=== PATIENT | male | born 1955 | race Caucasian/White ===

== ENCOUNTER 2016-10-05 12:15 | Inpatient (IN) | payer OTHER ==
[2016-10-26] MEDS ORDERED: LIDOCAINE 1% 2 ML INJ ONE (06:06)
[2016-10-26] MEDS ORDERED: BUPIVACAINE/EPI 0.25% 30 ML SDV ONE ×2 (06:57→12:09)
[2016-10-26] MEDS ORDERED: SKIN ADHESIVE (DERMABOND) 1 EACH TP ONE (06:57)
[2016-10-26] MEDS ORDERED: THROMBIN (BOVINE) 20,000 UNIT VIAL TP ONE ×2 (06:57→07:58)
[2016-10-26] MEDS ORDERED: BACITRACIN 50,000 UNITS/10 ML SYR IRR ONE ×2 (06:58→11:52)
[2016-10-26] MEDS ORDERED: morphINE PF 5 MG/10 ML INJ IT ONE (07:00)
[2016-10-26] MEDS ORDERED: CHLORHEXIDINE GLUC HIBICLENS 118 ML BTL TP ONE (07:00)
[2016-10-26] MEDS ORDERED: ceFAZolin 2 GM/DEXTROSE 100 ML IV ONE (07:00)
[2016-10-26] MEDS ORDERED: MIDAZOLAM 2 MG/2 ML VIAL ONE (07:04)
[2016-10-26] MEDS ORDERED: HYDROmorphONE/DILAUDID 2 MG/ML INJ ONE (07:15)
[2016-10-26] MEDS ORDERED: REMIFENTANIL HCL 1 MG VIAL ONE ×3 (07:15→11:28)
[2016-10-26] MEDS ORDERED: fentaNYL 100 MCG/2 ML INJ ONE ×2 (07:15→13:40)
[2016-10-26] MEDS ORDERED: KETAMINE 100 MG/10 ML SYR IVP ONE (07:15)
[2016-10-26] MEDS ORDERED: LR 1,000 ML IV ONE (07:16)
[2016-10-26] MEDS ORDERED: PROPOFOL/EMULSION 500 MG/50 ML BOTTLE IV ONE ×2 (07:16→08:49)
[2016-10-26] MEDS ORDERED: LIDOCAINE 1% 5 ML SDV ID PRN (07:16)
[2016-10-26] MEDS ORDERED: CITRATE DEXTROSE SOLN 500 ML BAG ONE ×2 (07:23)
[2016-10-26 07:39] LABS: CALCIUM 10.1 mg/dL (8.5-10.4); CARBON DIOXIDE 28 mEq/l (22-31); CHLORIDE 95 mEq/L (97-110); CREATININE 1.2 mg/dL (0.7-1.3); GLOMERULAR FILTRATION RATE > 60; GLUCOSE 105 mg/dL (70-100); SODIUM 137 mEq/L (134-144)
[2016-10-26 08:17] LABS: ANION GAP 14 mEq/L (8-16); POTASSIUM 3.8 mEq/L (3.5-5.2)
[2016-10-26] MEDS ORDERED: VASOPRESSIN 20 UNIT/ML VIAL ONE ×5 (08:27→11:31)
[2016-10-26] MEDS ORDERED: PHENYLEPHRINE HCL 100 MCG/ML SYR ONE (08:31)
[2016-10-26] MEDS ORDERED: epHEDrine SULFATE 10 MG/ML SYR ONE ×2 (08:31→10:32)
[2016-10-26] MEDS ORDERED: DEXAMETHASONE 4 MG/ML VIAL ONE ×2 (08:33)
[2016-10-26] MEDS ORDERED: ROCURONIUM 50 MG/5 ML VIAL ONE (08:33)
[2016-10-26] MEDS ORDERED: LIDOCAINE 2% 5 ML SDV ONE (08:33)
[2016-10-26] MEDS ORDERED: PHENYLEPHRINE 10 MG/ML SDV ONE ×3 (08:33→11:14)
[2016-10-26] MEDS ORDERED: ALBUMIN 5% 250 ML BOTTLE IV ONE (09:07)
[2016-10-26] MEDS ORDERED: PROPOFOL 200 MG/20 ML VIAL ONE (10:38)
[2016-10-26] MEDS ORDERED: ceFAZolin 1 GM VIAL ONE (11:35)
[2016-10-26] MEDS ORDERED: ONDANSETRON 4 MG/2 ML VIAL ONE (12:41)
[2016-10-26] MEDS ORDERED: PSEUDOEPHEDRINE HCL 30 MG TAB PO PRN (13:04)
[2016-10-26] MEDS ORDERED: SIMETHICONE 125 MG PO PRN (13:04)
[2016-10-26] MEDS ORDERED: ALPRAZolam 0.25 MG TAB PO PRN (13:04)
[2016-10-26] MEDS ORDERED: diphenhydrAMINE 25 MG CAP PO PRN (13:08)
[2016-10-26] MEDS ORDERED: MAGNESIUM HYDROXIDE 30 ML UDCUP PO PRN (13:08)
[2016-10-26] MEDS ORDERED: LACTULOSE 20 GM/30 ML UDCUP PO PRN (13:08)
[2016-10-26] MEDS ORDERED: BISACODYL 10 MG SUPP PR PRN (13:08)
[2016-10-26] MEDS ORDERED: ONDANSETRON DISINTEGRATING 4 MG TAB PO PRN (13:08)
[2016-10-26] MEDS ORDERED: POLYETHYLENE GLYCOL 3350 17 GM PKT PO PRN (13:08)
[2016-10-26] MEDS ORDERED: ONDANSETRON 4 MG/2 ML VIAL IVP PRN (13:08)
[2016-10-26] MEDS ORDERED: TESTOSTERONE IM 100 MG/ML SYRINGE IM SCH (13:30)
[2016-10-26] MEDS ORDERED: DEXMEDETOMIDINE HCL 400 MCG in NS 100 ML IV SCH (13:30)
[2016-10-26] MEDS ORDERED: fentaNYL 75 MCG PATCH TD SCH (13:30)
[2016-10-26] MEDS ORDERED: HYDROmorphONE/DILAUDID 1 MG/ML SYR ONE (13:40)
[2016-10-26] MEDS ORDERED: DIAZEPAM 10 MG/2 ML SYR ONE (14:02)
[2016-10-26] MEDS ORDERED: D50W 25 GM/50 ML SYR IVP PRN (14:10)
--- NOTE | 2016-10-26 14:10 | POSTOPPROG ---
Post Op Note Date of Operation: 10/26/16 Surgeon: Shashank Dominguez Home [employer] Teacher: Slava Rojas Anesthesiologist: Oscar Anesthesia: GET(General Endotracheal) Pre-op Diagnosis: Lumbar ddd Post-op Diagnosis: same Indication: pain, radiculopathy, stenosis Procedure: L3-S1 hardware removal with L23 TLIF, T8-S1 posterior fusion Inf/Abcess present in the surg proc area at time of surgery?: No Depth: Organ Space EBL: 100-500 Complications: none Drains: Jai Andrew ([email or web address]) Specimen(s): fluid sent for gram stain/culture PA Addendum - Addendum .: S: Pt resting in bed. Stated "I can't breathe" O: Awake but sleepy NAD VSS MAEx4 Motor 5/5 BUE/BLE Incision cdi JPx2 Anne in place A: 61 yo M s/p L3-S1 hardware removal with L23 TLIF, T8-S1 posterior fusion P: PT/OT To ICU for precedex/pain control sliding scale insulin ordered if needed Pain management - increased from home meds Post op xrays pending Gerson brace when OOB TEDs, SCDs, lovenox 24 hours post op Call NS with any issues
--- NOTE | 2016-10-26 14:19 | GOP ---
[f rep st] OPERATIVE REPORT DATE OF OPERATION: 10/26/2016 SURGEON: Shashank Dominguez MD ANESTHESIA: General. PREOPERATIVE DIAGNOSIS: 1. Adjacent level breakdown with severe spinal stenosis, L2-L3. 2. History of prior lumbar fusion, L3 to S1. 3. Thoracic spondylosis, T8 through L2. 4. Treatment refractory to nonoperative intervention. POSTOPERATIVE DIAGNOSIS: 1. Adjacent level breakdown with severe spinal stenosis, L2-L3. 2. History of prior lumbar fusion, L3 to S1. 3. Thoracic spondylosis, T8 through L2. 4. Treatment refractory to nonoperative intervention. PROCEDURE PERFORMED: 1. Posterior arthrodesis with approach to T8, T9, T10, T11, T12, L1, L2, L3, L4 , L5 and S1. 2. Exploration of prior lumbar hardware, L3 through S1, with sequential removal of segmental hardware including bilateral cap screws and rods from the L3 through S1 levels bilaterally from the [employer] System. 3. Placement of new bilateral pedicle screws into the T8, T9, T10, T11, T12, L1 and L2 levels from [employer] System. 4. Posterolateral fusion bilaterally between T8 and L3, and left-sided redo L5- S1 with morselized autograft and allograft. 5. Decompressive laminectomy with right-sided transforaminal lumbar interbody fusion at L2-L3, with a 10 x 27 8 mm PEEK cage filled with morselized autograft and allograft. 6. Use of intraoperative 3D Stealth navigation. 7. Use of intraoperative fluoroscopy, with less than 1 hour of physician time. 8. Use of neuromonitoring. 9. Use of the operating microscope. FINDINGS: per imaging SUPERVISOR TOY ASSEMBLY: CHARLEE Leahy SPECIMENS: Cultures were taken from the intraoperative wound after the exposure given his prior history of infection. ESTIMATED BLOOD LOSS: 500 mL, of which 250 was given back via Cell Saver. INDICATIONS: The patient is well known to me from prior multiple lumbar surgeries. The patient developed adjacent level breakdown at L2-L3 above his prior fusion L3 through S1. After failing nonoperative interventions and after discussion of the risks, benefits, and alternatives, we decided proceed forth with surgery as described above. He had been cleared by his ID doctor to proceed with surgery. DESCRIPTION OF PROCEDURE: The patient was brought to the operating theater and underwent general endotracheal anesthesia without complications. He had Venodynes and MARTHA hose, and the appropriate lines placed by Anesthesia. He was then flipped prone onto the Jai table. All bony processes were inspected and padded. The thoracic and lumbar areas and prior incision were identified and prepped and draped in the usual sterile surgical fashion. A time-out was completed per protocol. The patient received antibiotics within 1 hour of incision. The incision was infiltrated Marcaine with epinephrine and taken down with the scalpel blade. Using the plasma blade, the incision was taken down the midline to the lumbodorsal fascia. A subperiosteal dissection was carried out from the T8 through S1 levels. The dissection was extremely tedious secondary to the patient's prior infection and scar tissue. This added an additional hour and a half to the surgery. At this point, we completed our subperiosteal dissection and was able to identify the prior hardware from L3 through S1, which we then explored. He appeared to be solidly fused throughout. We removed the sequential cap screws and rods bilaterally from the L3 through S1 levels and passed them off the field. We then dissected on the left side between L5-S1 and decorticated the bone. We attached the 3D Stealth navigation clamp to the spinous process of L2 and completed a 3D Stealth navigation spin. Using 3D Stealth navigation, we placed the chief pilot holes for the bilateral pedicle screws into T8, T9, T10, T11, T12, L1 and L2. This required 2 separate spins with the O-arm. We then tapped and placed 5 x 50 mm screws bilaterally into T8, T9 and T11, 5 x 55 mm screws bilaterally into T10 and right-sided L1, a 6 x 50 mm screw on the right at T11, a 6 x 45 mm screw on the left at T12, and a 6 x 55 mm screw on the left at L1 and bilaterally at L2 from the [employer] System. Another 3D Stealth navigation spin demonstrated excellent placement of the hardware. At this point, the microscope was brought into the field to assist with microscopic dissection and to maintain illumination and magnification. Using a combination of the chemo tip on the drill bit, Kerrison punches and Leksell rongeur, we completed decompressive laminectomy at L2-L3 with a right-sided facetectomy and foraminotomy. We distracted the interspace and completed a right-sided L2-L3 diskectomy. We prepared the cartilaginous endplates and measured interbody space. We placed a 10 x 27 eight mm PEEK cage with morselized autograft and allograft anteriorly toward the midline. We packed additional morcellized autograft into the disk space and interbody fusion. We let down the distraction. We then decorticated the bone bilaterally between T8 and L3 for the posterolateral fusion. We irrigated the wound copiously with bacitracin irrigation. We placed 2 rods into the heads and screws between T8 and S1 bilaterally and secured them down with cap screws which were then tightened to the supervisor pipe finishing's setting. We placed morselized autograft and allograft bilaterally between T8 and L3 and left-sided L5-S1 for the posterolateral fusion. We placed 2 cross connectors as well. Two drains were left in the subfascial space and the wound then closed in multiple layers using Vicryl sutures for the deep layers, and running nylon stitches for the skin. The patient's wounds were dressed sterilely. He was flipped supine onto the transfer cart, where he was awakened, extubated, and taken to the recovery room in stable condition. There were no complications and no noted changes on neuromonitoring throughout the procedure. COMPLICATIONS: None. /[id number]/MODL MTDD
[2016-10-26] MEDS: NS W/ 20 KCl/L 1,000 ML IV SCH (15:00)
[2016-10-26] MEDS ORDERED: SIMETHICONE 80 MG TAB CHEW PO PRN (15:14)
[2016-10-26] MEDS: HYDROmorphONE/DILAUDID 1 MG/ML SYR IVP PRN (15:34)
[2016-10-26] MEDS: DIAZEPAM 10 MG/2 ML SYR IVP PRN (16:02)
[2016-10-26] MEDS: POLYETHYLENE GLYCOL 3350 17 GM PKT PO SCH ×2 (16:02→22:25)
[2016-10-26] MEDS: CYCLOBENZAPRINE 10 MG TAB PO SCH (16:02)
[2016-10-26] MEDS: DEXMEDETOMIDINE HCL 400 MCG in NS 100 ML IV SCH ×2 (16:07→20:01)
[2016-10-26] MEDS: ACETAMINOPHEN 500 MG TAB PO PRN (18:30)
[2016-10-26] MEDS: INSULIN REGULAR HUMAN 100 UNIT/ML SC SCH ×2 (18:38→22:44)
[2016-10-26] MEDS ORDERED: NON-FORMULARY NEW DRUG (Zolpidem Tartrate [Ambien Cr 12.5 Mg] 12.5 MG) PO SCH (21:00)
[2016-10-26] MEDS ORDERED: LORATADINE PO SCH (21:00)
[2016-10-26] MEDS ORDERED: FAMOTIDINE 20 MG/NACL 50 ML IV SCH (21:00)
[2016-10-26] MEDS ORDERED: NON-FORMULARY NEW DRUG (Omeprazole [Omeprazole] 20 MG) PO SCH (21:00)
[2016-10-26] MEDS: TAMSULOSIN HCL 0.4 MG CAP PO SCH (21:11)
[2016-10-26] MEDS: DOCUSATE SODIUM 100 MG CAP PO SCH (21:11)
[2016-10-26] MEDS: PANTOPRAZOLE SODIUM 40 MG TAB PO SCH (21:12)
[2016-10-26] MEDS: ZOLPIDEM TARTRATE 5 MG TAB PO SCH (22:23)
[2016-10-26] MEDS: LORATADINE PO SCH (22:38)
[2016-10-26] MEDS: fentaNYL 100 MCG/2 ML INJ IV PRN (23:02)
[2016-10-27] MEDS: DEXMEDETOMIDINE HCL 400 MCG in NS 100 ML IV SCH (01:21)
[2016-10-27] MEDS: ACETAMINOPHEN 500 MG TAB PO PRN ×4 (04:38→16:46)
[2016-10-27] MEDS: NS W/ 20 KCl/L 1,000 ML IV SCH (05:03)
[2016-10-27 05:21] LABS: % IMMATURE GRANULYOCYTES 1.2 % (0.0-1.1); ABSOLUTE IMMATURE GRANULOCYTES 0.19 10^3/uL (0.00-0.10); ADD DIFF? NO; ADD MORPH? YES; ADD SCAN? NO; ATYPICAL LYMPHOCYTE FLAG 10 (0-99); FRAGMENT RBC FLAG 40 (0-99); HEMATOCRIT 41.4 % (40.0-51.0); HEMOGLOBIN 11.6 g/dL (13.7-17.5); LEFT SHIFT FLG 10 (0-99); LIPEMIA HEMOLYSIS FLAG 70 (0-99); MEAN CELL HEMOGLOBIN 19.3 pg (27.9-34.1); MEAN PLATELET VOLUME 9.5 fL (8.7-11.7); PLATELET CLUMPS FLAG 10 (0-99); PLATELET COUNT 249 10^3/uL (150-400); RED CELL DISTRIBUTION WIDTH 18.4 % (11.5-15.2)
[2016-10-27 05:48] LABS: ANION GAP 11 mEq/L (8-16); CARBON DIOXIDE 22 mEq/l (22-31); CHLORIDE 102 mEq/L (97-110); CREATININE 0.7 mg/dL (0.7-1.3); GLUCOSE 95 mg/dL (70-100); POTASSIUM 4.9 mEq/L (3.5-5.2); SODIUM 135 mEq/L (134-144); SPECIMEN HEMOLYSIS 107
[2016-10-27 05:49] LABS: CALCIUM 8.8 mg/dL (8.5-10.4); GLOMERULAR FILTRATION RATE > 60
[2016-10-27 06:02] LABS: ELLIPTOCYTES 1+; HYPOCHROMIA 1+; MICROCYTES 1+; POLYCHROMASIA 1+
[2016-10-27 06:03] LABS: PLATELET ESTIMATE ADEQUATE (ADEQ)
[2016-10-27] MEDS: fentaNYL 100 MCG/2 ML INJ IV PRN ×5 (06:18→16:47)
[2016-10-27] MEDS: INSULIN REGULAR HUMAN 100 UNIT/ML SC SCH ×4 (07:26→21:54)
--- NOTE | 2016-10-27 08:03 | NEUSURGPN ---
<Cindy Mayorga - Last Filed: 10/27/16 08:00> Date of Surgery: 10/26/16 Post Op Day: 1 Assessment/Plan: 61 yo male s/p L2/3 TLIF, T8-S1 fusion - neuro stable - pain controlled - dc blackman today - monitor BRODY output - postop x-rays pending - wear brace when out of bed - transfer to the floor today - PT/OT Subjective: Had a rough night but is doing well this morning sitting upright. Objective: Awake. Alert. PERRL. EOMI Facial expression symmetrical Muscle strength full at 5/5 Sensation intact Incision with dressing c/d/i Catheter Insertion Date: 10/26/16 - Physician Discussed Patient with .: Angelica Neurosurgery Physical Exam - Vitals, I&O, Labs I and O 10/26/16 10/27/16 10/28/16 05:59 05:59 05:59 Intake Total 7646 Output Total 3480 Balance 4166 Weight 102.058 kg Intake: Oral (ml) 1750 IV Intake (ml) 3800 IV Infused (ml) 2096 Dexmedetomidine HCl 400 278 mcg In Ns 100 ml @ Per Protocol IV CONT LESLIE Rx#: [id number] NS W/ 20 KCl/L 1,000 ml @ 1818 75 mls/hr IV CONT LESLIE Rx #:[id number] Output: Urine (ml) 2450 Catheter 2450 Estimated Blood Loss (ml) 500 Wound Drainage (ml) 530 #1 Right Posterior Back 445 Jai Andrew #2 Left Posterior Back 85 Jai Andrew Microbiology 10/26/16 08:12 Gram Stain - Final Thoracic Fluid - Anaerobic Tube/Swab Vital Signs Temp Pulse Resp BP Pulse Ox 37.0 C 65 18 94/60 L 99 10/26/16 22:00 10/27/16 04:00 10/27/16 04:00 10/27/16 04:00 10/27/16 04:00 Laboratory Results 10/27/16 05:00 10/27/16 05:00 ICD10 Worksheet Patient Problems: Problems Problem Status Onset Wound infection Acute <Shashank Dominguez - Last Filed: 10/27/16 18:41> Assessment/Plan: NEUROSURGERY ATTENDING NOTE I met with the patient this evening. He is doing very well with pain that is controlled with oral pain medications. We will likely remove one of his drains tomorrow and the other drain on Tuesday with discharge plans for Tuesday. All questions answered and he was pleased with the plan Neurosurgery Physical Exam - Vitals, I&O, Labs I and O 10/26/16 10/27/16 10/28/16 05:59 05:59 05:59 Intake Total 7646 Output Total 3480 735 Balance 4166 -735 Weight 102.058 kg Intake: Oral (ml) 1750 IV Intake (ml) 3800 IV Infused (ml) 2096 Dexmedetomidine HCl 400 278 mcg In Ns 100 ml @ Per Protocol IV CONT LESLIE Rx#: [id number] NS W/ 20 KCl/L 1,000 ml @ 1818 75 mls/hr IV CONT LESLIE Rx #:[id number] Output: Urine (ml) 2450 325 Catheter 2450 Urinal 325 Estimated Blood Loss (ml) 500 Wound Drainage (ml) 530 410 #1 Right Posterior Back 445 370 Jai Andrew #2 Left Posterior Back 85 40 Jai Andrew Microbiology 10/26/16 08:12 Gram Stain - Final Thoracic Fluid - Anaerobic Tube/Swab Vital Signs Temp Pulse Resp BP Pulse Ox 36.3 C 109 H 20 114/58 L 98 10/27/16 16:00 10/27/16 16:00 10/27/16 16:00 10/27/16 16:00 10/27/16 16:00 Laboratory Results 10/27/16 05:00 10/27/16 05:00
[2016-10-27] MEDS: DULoxetine 60 MG CAP PO SCH (08:47)
[2016-10-27] MEDS: LISINOPRIL 40 MG TAB PO SCH (08:47)
[2016-10-27] MEDS: PANTOPRAZOLE SODIUM 40 MG TAB PO SCH ×2 (08:50→20:00)
[2016-10-27] MEDS: POLYETHYLENE GLYCOL 3350 17 GM PKT PO SCH ×3 (08:51→21:50)
[2016-10-27] MEDS: DOCUSATE SODIUM 100 MG CAP PO SCH ×2 (08:51→19:59)
[2016-10-27] MEDS: MULTIVITAMINS 1 EACH TAB PO SCH (08:51)
[2016-10-27] MEDS: CYCLOBENZAPRINE 10 MG TAB PO SCH ×2 (08:51→14:12)
[2016-10-27] MEDS: LORATADINE PO SCH ×2 (10:16→20:28)
[2016-10-27] MEDS: oxyCODONE IR 15 MG TAB PO PRN ×4 (12:02→21:50)
[2016-10-27] MEDS: DIAZEPAM 10 MG/2 ML SYR IVP PRN ×2 (16:50→22:05)
[2016-10-27] MEDS: ENOXAPARIN 40 MG/0.4 ML SYR SC SCH (17:02)
[2016-10-27] MEDS: metFORMIN HCL 500 MG TAB PO SCH (18:45)
[2016-10-27] MEDS: TAMSULOSIN HCL 0.4 MG CAP PO SCH (19:59)
[2016-10-27] MEDS: ZOLPIDEM TARTRATE 5 MG TAB PO SCH (19:59)
[2016-10-28] MEDS: oxyCODONE IR 15 MG TAB PO PRN ×7 (00:57→21:53)
[2016-10-28] MEDS: DIAZEPAM 10 MG/2 ML SYR IVP PRN ×2 (01:59→11:47)
[2016-10-28] MEDS: HYDROmorphONE/DILAUDID 1 MG/ML SYR IVP PRN ×2 (02:02→11:48)
[2016-10-28] MEDS ORDERED: fentaNYL 75 MCG PATCH TD SCH ×3 (08:00→09:00)
--- NOTE | 2016-10-28 08:37 | NEUSURGPN ---
Assessment/Plan: 61 yo male s/p L2/3 TLIF, T8-S1 fusion. POD#2 - neuro stable - pain controlled on current meds - Remove least productive BRODY drain today. - postop x-rays show stable hardware without evidence of failure - wear brace when out of bed. I put the brace back together. If any continued issues please call [facility]. - transfer to the floor today - PT/OT - Cultures NGTD - D/w Dr Dominguez -Please call NS with any issues Subjective: Pt resting in bed, did not sleep well. Having issues with his brace falling apart. Objective: AAOx3 NAD VSS MAEx4 Motor 5/5 BLE +LT Incision dressed cdi JPx2 Urinary Catheter in Place: No Catheter Insertion Date: 10/26/16 - Physician Discussed Patient with : Angelica Neurosurgery Physical Exam - Vitals, I&O, Labs I and O 10/27/16 10/28/16 10/29/16 05:59 05:59 05:59 Intake Total 7646 1040 Output Total 3480 2280 Balance 4166 -1240 Weight 102.058 kg 101.196 kg Intake: Oral (ml) 1750 1040 IV Intake (ml) 3800 IV Infused (ml) 2096 Dexmedetomidine HCl 400 278 mcg In Ns 100 ml @ Per Protocol IV CONT LESLIE Rx#: [id number] NS W/ 20 KCl/L 1,000 ml @ 1818 75 mls/hr IV CONT LESLIE Rx #:[id number] Output: Urine (ml) 2450 1625 Catheter 2450 Urinal 1625 Estimated Blood Loss (ml) 500 Wound Drainage (ml) 530 655 #1 Right Posterior Back 445 615 Jai Andrew #2 Left Posterior Back 85 40 Jai Andrew Other: Number of Voids Urinal 1 Microbiology 10/26/16 08:12 Gram Stain - Final Thoracic Fluid - Anaerobic Tube/Swab Vital Signs Temp Pulse Resp BP Pulse Ox 37.1 C 113 H 18 128/73 H 95 10/28/16 00:00 10/28/16 00:00 10/28/16 00:00 10/28/16 00:33 10/28/16 00:00 Laboratory Results 10/27/16 05:00 10/27/16 05:00 ICD10 Worksheet Patient Problems: Problems Problem Status Onset Wound infection Acute
[2016-10-28] MEDS: CYCLOBENZAPRINE 10 MG TAB PO SCH ×2 (09:24→15:54)
[2016-10-28] MEDS: INSULIN REGULAR HUMAN 100 UNIT/ML SC SCH ×4 (09:24→20:47)
[2016-10-28] MEDS: metFORMIN HCL 500 MG TAB PO SCH ×2 (09:24→18:45)
[2016-10-28] MEDS: DOCUSATE SODIUM 100 MG CAP PO SCH ×2 (09:25→19:18)
[2016-10-28] MEDS: DULoxetine 60 MG CAP PO SCH (09:26)
[2016-10-28] MEDS: ENOXAPARIN 40 MG/0.4 ML SYR SC SCH (09:26)
[2016-10-28] MEDS: LISINOPRIL 40 MG TAB PO SCH (09:33)
[2016-10-28] MEDS: PANTOPRAZOLE SODIUM 40 MG TAB PO SCH ×2 (09:34→19:18)
[2016-10-28] MEDS: MULTIVITAMINS 1 EACH TAB PO SCH (09:34)
[2016-10-28] MEDS: LORATADINE PO SCH ×2 (09:34→19:24)
[2016-10-28] MEDS: POLYETHYLENE GLYCOL 3350 17 GM PKT PO SCH ×3 (09:34→21:31)
[2016-10-28] MEDS: TAMSULOSIN HCL 0.4 MG CAP PO SCH (19:18)
[2016-10-28] MEDS: ZOLPIDEM TARTRATE 5 MG TAB PO SCH (19:18)
[2016-10-29] MEDS: oxyCODONE IR 15 MG TAB PO PRN ×3 (03:57→14:57)
--- NOTE | 2016-10-29 07:51 | NEUSURGPN ---
Assessment/Plan: 61 yo male s/p L2/3 TLIF, T8-S1 fusion. POD#3 - neuro stable - pain controlled on current meds - Remove 2nd BRODY drain today. - postop x-rays show stable hardware without evidence of failure - wear brace when out of bed. - transfer to the floor today - PT/OT - Cultures NGTD x 48 hours -Plan for DC home this afternoon. - D/w Dr Dominguez -Please call NS with any issues Subjective: Pt sleeping in bed. Pain meds helping. Objective: Awake but sleepy NAD VSS MAEx4 Motor 5/5 BLE Incision dressed cdi JPx1 Urinary Catheter in Place: No Catheter Insertion Date: 10/26/16 - Physician Discussed Patient with : Angelica Neurosurgery Physical Exam - Vitals, I&O, Labs I and O 10/28/16 10/29/16 10/30/16 05:59 05:59 05:59 Intake Total 1040 2050 Output Total 2280 1585 Balance -1240 465 Weight 101.196 kg Intake: Oral (ml) 1040 2050 Output: Urine (ml) 1625 1250 Urinal 1625 1250 Wound Drainage (ml) 655 335 #1 Right Posterior Back 615 325 Jai Andrew #2 Left Posterior Back 40 10 Jai Andrew Other: Number of Voids Toilet 4 Urinal 1 Microbiology 10/26/16 08:12 Gram Stain - Final Thoracic Fluid - Anaerobic Tube/Swab Vital Signs Temp Pulse Resp BP Pulse Ox 36.4 C 102 H 15 113/68 92 10/29/16 00:00 10/29/16 00:00 10/29/16 00:00 10/29/16 00:00 10/29/16 00:00 Laboratory Results 10/27/16 05:00 10/27/16 05:00 ICD10 Worksheet Patient Problems: Problems Problem Status Onset Wound infection Acute
[2016-10-29] MEDS: metFORMIN HCL 500 MG TAB PO SCH (09:00)
[2016-10-29] MEDS: LORATADINE PO SCH (09:00)
[2016-10-29] MEDS: PANTOPRAZOLE SODIUM 40 MG TAB PO SCH (09:49)
[2016-10-29] MEDS: LISINOPRIL 40 MG TAB PO SCH (09:49)
[2016-10-29] MEDS: MULTIVITAMINS 1 EACH TAB PO SCH (09:49)
[2016-10-29] MEDS: DULoxetine 60 MG CAP PO SCH (09:49)
[2016-10-29] MEDS: ENOXAPARIN 40 MG/0.4 ML SYR SC SCH (09:51)
[2016-10-29] MEDS: CYCLOBENZAPRINE 10 MG TAB PO SCH ×2 (09:51→14:58)
[2016-10-29] MEDS: DOCUSATE SODIUM 100 MG CAP PO SCH (09:51)
[2016-10-29] MEDS: POLYETHYLENE GLYCOL 3350 17 GM PKT PO SCH (09:52)
[2016-10-29 09:55] VITALS: BP 102/74
[2016-10-29 10:59] VITALS: PULSE 91; RESP 20; TEMP 97.9; O2SAT 90
[2016-10-29] MEDS: INSULIN REGULAR HUMAN 100 UNIT/ML SC SCH ×2 (12:38→12:39)
[2016-11-03] MEDS ORDERED: TESTOSTERONE IM 100 MG/ML SYRINGE IM SCH (09:00)
== END 2016-10-29 16:33 | disposition home or self-care (01) | DRG 458 ==
LOC: F3N 10-26 05:50 → F2N 10-26 05:50
PROVIDERS: ADMIT Neurological Surgery; ATTEND Neurological Surgery
PROC: 0SG00AJ Fusion of Lumbar Vertebral Joint with Interbody Fusion Device, Posterior Approach, Anterior Column, Open Approach (ICD-10-PCS; principal; 2016-10-26 07:15)
PROC: 4A1004G Monitoring of Central Nervous Electrical Activity, Intraoperative, Open Approach (ICD-10-PCS; principal; 2016-10-26 07:15)
PROC: 0SG3071 Fusion of Lumbosacral Joint with Autologous Tissue Substitute, Posterior Approach, Posterior Column, Open Approach (ICD-10-PCS; principal; 2016-10-26 07:15)
PROC: 0QP004Z Removal of Internal Fixation Device from Lumbar Vertebra, Open Approach (ICD-10-PCS; principal; 2016-10-26 07:15)
PROC: 0RGA071 Fusion of Thoracolumbar Vertebral Joint with Autologous Tissue Substitute, Posterior Approach, Posterior Column, Open Approach (ICD-10-PCS; principal; 2016-10-26 07:15)
PROC: 01NB0ZZ Release Lumbar Nerve, Open Approach (ICD-10-PCS; principal; 2016-10-26 07:15)
PROC: 0SG1071 Fusion of 2 or more Lumbar Vertebral Joints with Autologous Tissue Substitute, Posterior Approach, Posterior Column, Open Approach (ICD-10-PCS; principal; 2016-10-26 07:15)
PROC: 0ST20ZZ Resection of Lumbar Vertebral Disc, Open Approach (ICD-10-PCS; principal; 2016-10-26 07:15)
PROC: 8E0WXBF Computer Assisted Procedure of Trunk Region, With Fluoroscopy (ICD-10-PCS; principal; 2016-10-26 07:15)
PROC: 0QP104Z Removal of Internal Fixation Device from Sacrum, Open Approach (ICD-10-PCS; principal; 2016-10-26 07:15)
PROC: 0RG7071 Fusion of 2 to 7 Thoracic Vertebral Joints with Autologous Tissue Substitute, Posterior Approach, Posterior Column, Open Approach (ICD-10-PCS; principal; 2016-10-26 07:15)
DX: M48.06 Spinal stenosis, lumbar region (principal); M47.26 Other spondylosis with radiculopathy, lumbar region; K21.9 Gastro-esophageal reflux disease without esophagitis; G47.33 Obstructive sleep apnea (adult) (pediatric); R73.03 Prediabetes; F32.9 Major depressive disorder, single episode, unspecified; I10 Essential (primary) hypertension; Z98.1 Arthrodesis status
CPT/HCPCS: 97116-GP; 97161-GP; 97165-GO; 97530-GO; 97535-GO; C1713; J0690; J1071; J1100; J1170; J1650; J1815; J2250; J2370; J2405; J2704; J3010; J7060; P9041

== ENCOUNTER → 2016-11-04 | Outpatient (CLI) | payer OTHER | LOC: FIMAGING 10:37 | PROVIDERS: ATTEND Physician Assistant Surgical | DX: Z09 Encounter for follow-up examination after completed treatment for conditions other than malignant neoplasm (principal); Z98.1 Arthrodesis status ==

== ENCOUNTER → 2017-01-17 | Outpatient (CLI) | payer OTHER | LOC: FIMAGING 13:29 | PROVIDERS: ATTEND Physician Assistant Surgical | DX: Z09 Encounter for follow-up examination after completed treatment for conditions other than malignant neoplasm (principal); Z98.1 Arthrodesis status; M43.12 Spondylolisthesis, cervical region ==

== ENCOUNTER → 2017-04-05 | Outpatient (CLI) | payer OTHER | LOC: FLAB 15:41 | PROVIDERS: ATTEND Physician Assistant Surgical | DX: Z09 Encounter for follow-up examination after completed treatment for conditions other than malignant neoplasm (principal); Z98.1 Arthrodesis status ==

== ENCOUNTER → 2017-11-11 | Outpatient (CLI) | payer OTHER | LOC: FIMAGING 13:20 | PROVIDERS: ATTEND Orthopaedic Surgery Orthopaedic Surgery of the Spine | DX: Z09 Encounter for follow-up examination after completed treatment for conditions other than malignant neoplasm (principal); Z98.1 Arthrodesis status ==